=== PATIENT | female | born 1935 | race Caucasian/White ===

== ENCOUNTER 2023-10-16 21:55 | Emergency (ER) | payer BC, OTHER ==
[~2023-10-16] VITALS: Ht 170.2 cm; Wt 95.3 kg
[2023-10-17 04:28] VITALS: BP 159/77; PULSE 111; RESP 18; TEMP 98.3; O2SAT 95
== END 2023-10-17 04:36 | disposition home or self-care (01) ==
LOC: EDBD 21:55 → ER 21:55
DX: S40.011A Contusion of right shoulder, initial encounter (principal); S09.90XA Unspecified injury of head, initial encounter; I10 Essential (primary) hypertension; I48.91 Unspecified atrial fibrillation; E78.5 Hyperlipidemia, unspecified; Z90.710 Acquired absence of both cervix and uterus; W18.39XA Other fall on same level, initial encounter; Y93.89 Activity, other specified; Y92.89 Other specified places as the place of occurrence of the external cause; Y99.8 Other external cause status
CPT/HCPCS: 70450; 72125; 73030